=== PATIENT | female | born 1955 | race Two or more races ===

== ENCOUNTER → 2021-08-15 | Outpatient (CLI) | payer OTHER ==
[2021-08-15 11:47] LABS: Urine Bacteria FEW /hpf (None Seen); Urine Blood Negative /uL (Negative); Urine Specific Gravity 1.011 (1.001-1.035); Urine WBC 1 /hpf (0 - 5)
[2021-08-15 13:45] LABS: Basophils # (auto) 0.1 10 ^3/uL (0-0.2); Eosinophils # (auto) 0.3 10 ^3/uL (0-0.8); Monocytes # (auto) 0.4 10 ^3/uL (0-1.3); Neutrophils # (auto) 4.7 10 ^3/uL (1.6-8.6); Nucleated Red Blood Cells % 0.1 %
[2021-08-15 13:47] LABS: Basophils % (auto) 1.2 % (0.0-2.0); Eosinophils % (auto) 3.8 % (0.0-7.0); Hematocrit 32.5 % (36.0-46.0); Hemoglobin 10.6 g/dL (12.2-16.2); Lymphocytes # (auto) 1.3 10 ^3/uL (0.4-5.4); Lymphocytes % (auto) 18.9 % (10.0-50.0); Mean Corpuscular Hemoglobin 20.5 pg (28.0-32.0); Mean Corpuscular Hgb Conc. 32.5 g/dL (32.0-36.0); Mean Corpuscular Volume 62.9 fL (80.0-100.0); Monocytes % (auto) 6.2 % (0.0-12.0); Neutrophils % (auto) 69.9 % (37.0-80.0); Red Blood Cells 5.17 10^6/uL (4.0-5.20); Red Cell Distribution Width 16.9 % (11.8-14.3); White Blood Cell 6.7 10^3/uL (4.4-10.8)
[2021-08-15 14:29] LABS: Potassium 3.9 mmol/L (3.5-5.1)
[2021-08-15 14:54] LABS: Albumin 3.6 g/dL (3.4-5.0); BUN/Creatinine Ratio 27.3; Bilirubin, Total 0.6 mg/dL (0.2-1.0); Calcium 8.9 mg/dL (8.5-10.1); Total Protein 6.9 g/dL (6.4-8.2); Uric Acid 4.2 mg/dL (2.6-6.0)
== END | disposition home or self-care (01) ==
LOC: LAB 09:04
PROVIDERS: ATTEND Internal Medicine
DX: Z00.00 Encounter for general adult medical examination without abnormal findings (principal)
CPT/HCPCS: 36415; 80053; 80061; 81001; 83036; 84443; 84550; 85025; 85652; 86431

== ENCOUNTER → 2021-10-25 | Outpatient (CLI) | payer OTHER ==
[~2021-10-25] MED LIST: BUPIVACAINE HCL 0.25% P/F 10 ML VIAL ONE; LIDOCAINE 2%HCL (LOCAL ANESTH.) INJ 10ml MDV ONE; TRIAMCINOLONE 40MG/ML 1ML VIAL ONE
== END | disposition home or self-care (01) ==
LOC: XYW 13:47
PROVIDERS: ATTEND Orthopaedic Surgery Adult Reconstructive Orthopaedic Surgery
DX: M19.011 Primary osteoarthritis, right shoulder (principal); M75.101 Unspecified rotator cuff tear or rupture of right shoulder, not specified as traumatic
CPT/HCPCS: 73020; J2001; J3301; J3490

== ENCOUNTER 2022-02-06 08:38 | Inpatient (IN) | payer OTHER ==
[2022-02-02 12:16] LABS: Basophils # (auto) 0.1 10 ^3/uL (0-0.2); Basophils % (auto) 0.9 % (0.0-2.0); Eosinophils # (auto) 0.3 10 ^3/uL (0-0.8); Eosinophils % (auto) 4.8 % (0.0-7.0); Hematocrit 34.3 % (36.0-46.0); Hemoglobin 10.4 g/dL (12.2-16.2); Lymphocytes # (auto) 1.4 10 ^3/uL (0.4-5.4); Lymphocytes % (auto) 20.9 % (10.0-50.0); Mean Corpuscular Hemoglobin 19.3 pg (28.0-32.0); Mean Corpuscular Hgb Conc. 30.4 g/dL (32.0-36.0); Mean Corpuscular Volume 63.6 fL (80.0-100.0); Monocytes # (auto) 0.5 10 ^3/uL (0-1.3); Monocytes % (auto) 6.7 % (0.0-12.0); Neutrophils # (auto) 4.5 10 ^3/uL (1.6-8.6); Neutrophils % (auto) 66.7 % (37.0-80.0); Red Cell Distribution Width 16.3 % (11.8-14.3); White Blood Cell 6.8 10^3/uL (4.4-10.8)
[2022-02-02 12:22] LABS: Urine Bacteria FEW /hpf (None Seen); Urine Blood Negative /uL (Negative); Urine Specific Gravity 1.008 (1.001-1.035); Urine WBC 9 /hpf (0 - 5)
[2022-02-02 12:23] LABS: INR 0.98 (0.9-1.15)
[2022-02-02 12:49] LABS: Albumin 3.7 g/dL (3.4-5.0); Calcium 8.8 mg/dL (8.5-10.1)
[2022-02-02 12:54] LABS: BUN/Creatinine Ratio 27.4; Bilirubin, Total 0.6 mg/dL (0.2-1.0); Total Protein 7.1 g/dL (6.4-8.2)
[~2022-02-06] VITALS: Ht 162.6 cm; Wt 66.0 kg
[~2022-02-06 08:38] MED LIST changes: +ALBUAER3 IN; -BUPIVACAINE HCL 0.25% P/F 10 ML VIAL ONE; +ESTR0.035 TD; +FLUT44AE IN; +LEV100T PO; -LIDOCAINE 2%HCL (LOCAL ANESTH.) INJ 10ml MDV ONE; -TRIAMCINOLONE 40MG/ML 1ML VIAL ONE
[2022-02-06] MEDS ORDERED: ceFAZolin 1GM/50ML 100 ML IV ONE (08:53)
[2022-02-06] MEDS ORDERED: ACETAMINOPHEN IV 100 ML IV ONE (08:54)
[2022-02-06] MEDS ORDERED: CELECOXIB 100 MG CAP PO ONE (09:15)
[2022-02-06] MEDS ORDERED: ACETAMINOPHEN IV 1000 MG/100ML (10MG/ML) IV ONE (09:15)
[2022-02-06] MEDS ORDERED: PREGABALIN CAPSULE 75 MG CAP PO ONE (09:15)
[2022-02-06] MEDS ORDERED: CELECOXIB 100 MG CAP ONE (09:25)
[2022-02-06] MEDS ORDERED: PREGABALIN CAPSULE 75 MG CAP ONE (09:26)
[2022-02-06] MEDS ORDERED: TRANEXAMIC ACID 20 ML ONE (12:10)
[2022-02-06] MEDS ORDERED: TETRACAINE 1% INJ 2 ML VIAL IJ ONE (12:11)
[2022-02-06] MEDS ORDERED: BUPIVACAINE W/ EPINEPH 0.5% INJ 50ML MDV IJ ONE (12:11)
[2022-02-06] MEDS ORDERED: VANCOMYCIN HCL 1000 MG VL ONE (12:12)
[2022-02-06] MEDS ORDERED: KETOROLAC TROMETH 30 MG/ML 1ML VIAL ONE (12:13)
[2022-02-06] MEDS ORDERED: MORPHINE SULF PF 5 MG/10 ML VIAL ONE (12:13)
[2022-02-06] MEDS ORDERED: fentaNYL CITRATE 100 MCG/2 ML VL ONE (12:34)
[2022-02-06] MEDS ORDERED: MIDAZOLAM HCL 2MG/2ML 2ml VIAL (1mg/ml) ONE (12:34)
[2022-02-06] MEDS ORDERED: PROPOFOL 10 MG/ML 20 ML IV ONE (12:39)
[2022-02-06] MEDS ORDERED: DexAMETHasone SOD PHOS 10MG/1ML VIAL INJ ONE (12:39)
[2022-02-06] MEDS ORDERED: MIDAZOLAM HCL 2MG/2ML 2ml VIAL (1mg/ml) IV PRN (13:15)
[2022-02-06] MEDS ORDERED: ONDANSETRON HCL 4 MG/2 ML VIAL IV PRN ×3 (13:15→14:00)
[2022-02-06] MEDS ORDERED: NALOXONE HCL 0.4 MG/ML VIAL IV PRN (13:15)
[2022-02-06] MEDS ORDERED: HYDROmorphone HCL 2 MG/ML VL/or syr IV PRN ×2 (13:15→14:00)
[2022-02-06] MEDS ORDERED: ePHEDrine SULFATE 50 MG/ML AMP IV PRN (13:15)
[2022-02-06] MEDS ORDERED: diphenhdrAMINE HCL 50 MG/1 ML VL IV PRN (13:15)
[2022-02-06] MEDS ORDERED: DexAMETHasone SOD PHOS 10MG/1ML VIAL INJ IV PRN (13:15)
[2022-02-06] MEDS ORDERED: LABETALOL HCL 5 MG/ML 4ML SYRINGE IV PRN (13:15)
[2022-02-06] MEDS ORDERED: MORPHINE SULFATE INJ 2 MG/ml SYRG IV PRN (14:00)
[2022-02-06] MEDS ORDERED: KETOROLAC TROMETH 30 MG/ML 1ML VIAL IV PRN (14:00)
[2022-02-06] MEDS ORDERED: ALBUTEROL SULF HFA 90MCG INH 200DOSE IN SCH (14:00)
[2022-02-06] MEDS ORDERED: NITROGLYCERIN 0.4 MG SL TAB SL PRN (14:00)
[2022-02-06] MEDS ORDERED: BISACODYL 5 MG EC TAB PO PRN (14:00)
[2022-02-06] MEDS ORDERED: ALBUTEROL SULF 2.5 MG/0.5ML(0.5%) NEB SOLN NEB PRN (16:00)
[2022-02-06 19:30] VITALS: BP 109/70
[2022-02-06 20:00] VITALS: BP 111/60
[2022-02-06] MEDS: ceFAZolin 1GM/50ML 50 ML IV SCH ×2 (20:00→20:20)
[2022-02-06] MEDS: LACTATED RINGER'S 1,000 ML IV SCH (20:20)
[2022-02-06] MEDS: SODIUM CHLOR 0.9% PF (SALINE LOCK) 10ML VIAL/SYR IV SCH ×2 (20:21→20:52)
[2022-02-06 20:46] VITALS: BP 100/58
[2022-02-06 21:00] VITALS: BP 108/61
[2022-02-06 22:00] VITALS: BP 102/54
[2022-02-06] MEDS: DOCUSATE SOD 100 MG CAP PO SCH (22:00)
[2022-02-06] MEDS: oxyCODONE ER 10 MG TAB PO SCH (22:00)
[2022-02-06 23:00] VITALS: BP 109/59
[2022-02-07] VITALS (24 sets, daily range): BP systolic 88–121; BP diastolic 43–96
[2022-02-07] MEDS: LACTATED RINGER'S 1,000 ML IV SCH ×3 (01:43→19:34)
[2022-02-07] MEDS: ceFAZolin 1GM/50ML 50 ML IV SCH (01:43)
[2022-02-07] MEDS: SODIUM CHLOR 0.9% PF (SALINE LOCK) 10ML VIAL/SYR IV SCH ×3 (05:07→22:05)
[2022-02-07 05:21] LABS: Hematocrit 27.2 % (36.0-46.0); Hemoglobin 8.6 g/dL (12.2-16.2)
[2022-02-07 05:39] LABS: Albumin 2.7 g/dL (3.4-5.0); BUN/Creatinine Ratio 27.3; Calcium 8.1 mg/dL (8.5-10.1)
[2022-02-07 05:41] LABS: Bilirubin, Total 0.4 mg/dL (0.2-1.0); Total Protein 5.3 g/dL (6.4-8.2)
[2022-02-07] MEDS: DOCUSATE SOD 100 MG CAP PO SCH ×2 (10:00→22:04)
[2022-02-07] MEDS: PANTOPRAZOLE 40 MG TAB PO SCH (10:21)
[2022-02-07] MEDS: oxyCODONE ER 10 MG TAB PO SCH (10:21)
[2022-02-07] MEDS: LEVOTHYROXINE SODIUM 100 MCG TAB PO SCH (10:21)
[2022-02-07] MEDS: ENOXAPARIN SOD 40 MG/0.4 ML SYRINGE SC SCH (10:22)
[2022-02-07] MEDS ORDERED: LACTATED RINGER'S 2,000 ML IV ONE (13:15)
[2022-02-07] MEDS ORDERED: LACTATED RINGER'S 1,000 ML IV ONE (13:30)
[2022-02-07] MEDS: HYDROmorphone HCL 2 MG/ML VL/or syr IV PRN ×3 (14:47→22:06)
[2022-02-07] MEDS: OXYCODONE W/ ACETAMINOPHEN 5/325MG TABLET PO PRN ×2 (19:35→23:44)
[2022-02-08] MEDS: SODIUM CHLOR 0.9% PF (SALINE LOCK) 10ML VIAL/SYR IV SCH ×2 (04:23→13:58)
[2022-02-08] MEDS: HYDROmorphone HCL 2 MG/ML VL/or syr IV PRN ×2 (04:24→10:12)
[2022-02-08 05:00] VITALS: BP 117/65
[2022-02-08] MEDS: LACTATED RINGER'S 1,000 ML IV SCH (05:41)
[2022-02-08] MEDS: OXYCODONE W/ ACETAMINOPHEN 5/325MG TABLET PO PRN ×2 (05:42→13:57)
[2022-02-08 06:43] LABS: Basophils # (auto) 0 10 ^3/uL (0-0.2); Basophils % (auto) 0.9 % (0.0-2.0); Eosinophils # (auto) 0 10 ^3/uL (0-0.8); Hematocrit 25.8 % (36.0-46.0); Hemoglobin 8.2 g/dL (12.2-16.2); Lymphocytes # (auto) 0.3 10 ^3/uL (0.4-5.4); Monocytes # (auto) 0.5 10 ^3/uL (0-1.3); Neutrophils # (auto) 4.5 10 ^3/uL (1.6-8.6)
[2022-02-08 06:50] LABS: Eosinophils % (auto) 0.2 % (0.0-7.0); Lymphocytes % (auto) 6.5 % (10.0-50.0); Mean Corpuscular Hgb Conc. 31.8 g/dL (32.0-36.0); Monocytes % (auto) 8.9 % (0.0-12.0); Neutrophils % (auto) 83.5 % (37.0-80.0); Nucleated Red Blood Cells % 0.1 %; Red Blood Cells 4.09 10^6/uL (4.0-5.20); Red Cell Distribution Width 16.4 % (11.8-14.3); White Blood Cell 5.4 10^3/uL (4.4-10.8)
[2022-02-08 06:52] LABS: BUN/Creatinine Ratio 15.4; Calcium 8.1 mg/dL (8.5-10.1); Potassium 3.6 mmol/L (3.5-5.1)
[2022-02-08 09:00] VITALS: BP 128/59
[2022-02-08] MEDS: LEVOTHYROXINE SODIUM 100 MCG TAB PO SCH (10:11)
[2022-02-08] MEDS: PANTOPRAZOLE 40 MG TAB PO SCH (10:11)
[2022-02-08] MEDS: DOCUSATE SOD 100 MG CAP PO SCH (10:11)
[2022-02-08] MEDS: ENOXAPARIN SOD 40 MG/0.4 ML SYRINGE SC SCH (10:11)
[2022-02-08 13:00] VITALS: BP 135/67
[2022-02-08 15:19] VITALS: BP 135/67
[2022-02-08 16:41] VITALS: BP 123/73
== END 2022-02-08 17:07 | disposition home health service (06) | DRG 470 ==
LOC: SUR 08:38 → TELE 14:00 → TELE-WESTW 19:05
PROVIDERS: ADMIT Orthopaedic Surgery Adult Reconstructive Orthopaedic Surgery; ATTEND Internal Medicine
PROC: 0SRD0J9 Replacement of Left Knee Joint with Synthetic Substitute, Cemented, Open Approach (ICD-10-PCS; principal; 2022-02-06 12:38)
DX: M17.12 Unilateral primary osteoarthritis, left knee (principal); J45.909 Unspecified asthma, uncomplicated; I95.9 Hypotension, unspecified; E03.9 Hypothyroidism, unspecified; Z20.822 Contact with and (suspected) exposure to COVID-19
CPT/HCPCS: 36415; 73562; 80048; 80053; 81001; 85014; 85018; 85025; 85610; 85730; 86850; 86900; 86901; 97110; 97116; 97163; 97530; C1713; G0378; J0131; J0690; J1100; J1885; J2250; J2405; J2704

== ENCOUNTER → 2022-08-01 | Outpatient (CLI) | payer OTHER ==
[2022-08-01 10:48] LABS: Albumin 3.7 g/dL (3.4-5.0); Potassium 3.9 mmol/L (3.5-5.1)
[2022-08-01 10:50] LABS: Total Protein 7.1 g/dL (6.4-8.2)
[2022-08-01 15:11] LABS: BUN/Creatinine Ratio 15.5; Bilirubin, Total 0.6 mg/dL (0.2-1.0); Calcium 8.5 mg/dL (8.5-10.1)
== END | disposition home or self-care (01) ==
LOC: LAB 09:50
PROVIDERS: ATTEND Internal Medicine
DX: Z12.11 Encounter for screening for malignant neoplasm of colon (principal); R73.03 Prediabetes; D64.9 Anemia, unspecified
CPT/HCPCS: 36415; 80053; 80061; 82043; 83036

== ENCOUNTER → 2023-01-25 | Outpatient (CLI) | payer OTHER | END | disposition home or self-care (01) | LOC: XYW 14:04 | PROVIDERS: ATTEND Internal Medicine | DX: R42 Dizziness and giddiness (principal) | CPT/HCPCS: 93886 ==

== ENCOUNTER → 2023-05-03 | Outpatient (CLI) | payer OTHER ==
[2023-05-03 09:05] LABS: Basophils # (auto) 0 10 ^3/uL (0-0.2); Basophils % (auto) 0.7 % (0.0-2.0); Lymphocytes # (auto) 1.1 10 ^3/uL (0.4-5.4); Neutrophils # (auto) 3.3 10 ^3/uL (1.6-8.6); Red Cell Distribution Width 17.6 % (11.8-14.3)
[2023-05-03 09:06] LABS: Eosinophils # (auto) 0.1 10 ^3/uL (0-0.8); Eosinophils % (auto) 2.7 % (0.0-7.0); Hematocrit 31.6 % (36.0-46.0); Lymphocytes % (auto) 22.1 % (10.0-50.0); Mean Corpuscular Hemoglobin 19.5 pg (28.0-32.0); Mean Corpuscular Hgb Conc. 31.6 g/dL (32.0-36.0); Mean Corpuscular Volume 61.5 fL (80.0-100.0); Monocytes # (auto) 0.5 10 ^3/uL (0-1.3); Monocytes % (auto) 9.4 % (0.0-12.0); Neutrophils % (auto) 65.1 % (37.0-80.0); Nucleated Red Blood Cells % 0.1 %; Red Blood Cells 5.13 10^6/uL (4.0-5.20); White Blood Cell 5.1 10^3/uL (4.4-10.8)
[2023-05-03 10:03] LABS: Creatinine, Urine 70.46 mg/dL (30.0-125.0)
[2023-05-03 10:05] LABS: Micro Albumin < 3.0 mg/L (<30.0)
[2023-05-03 10:07] LABS: Alanine Aminotransferase 14 U/L (7-40); Albumin 3.9 g/dL (3.2-4.8); Alkaline Phosphatase 56 U/L (46-116); Anion Gap 5 (5-15); Aspartate Aminotransferase 18 U/L (13-40); Blood Urea Nitrogen 6 mg/dL (9-23); Calcium 8.8 mg/dL (8.5-10.1); Carbon Dioxide 27 mmol/L (20-30); Chloride 99 mmol/L (98-107); Cholesterol 175 mg/dL (< 200); Glucose 93 mg/dL (74-106); HDL Cholesterol 68 mg/dL (40-59); LDL Cholesterol 89 mg/dL (< 100); Potassium 3.8 mmol/L (3.5-5.1); Sodium 131 mmol/L (136-145); Triglycerides 73 mg/dL (< 150)
[2023-05-03 10:08] LABS: Bilirubin, Total 0.4 mg/dL (0.2-1.0); Total Protein 6.8 g/dL (5.7-8.2)
== END | disposition home or self-care (01) ==
LOC: LAB 08:47
PROVIDERS: ATTEND Internal Medicine
DX: E78.5 Hyperlipidemia, unspecified (principal); R73.03 Prediabetes
CPT/HCPCS: 36415; 80053; 80061; 82043; 82570; 83036; 84443; 85025

== ENCOUNTER → 2023-07-02 | Outpatient (CLI) | payer OTHER | END | disposition home or self-care (01) | LOC: XYW 07:47 | PROVIDERS: ATTEND Orthopaedic Surgery Adult Reconstructive Orthopaedic Surgery | DX: M17.12 Unilateral primary osteoarthritis, left knee (principal); Z96.652 Presence of left artificial knee joint | CPT/HCPCS: 78315; A9503 ==

== ENCOUNTER → 2023-10-24 | Outpatient (CLI) | payer OTHER ==
[2023-10-24 09:32] LABS: Calcium 9.2 mg/dL (8.5-10.1); Chloride 100 mmol/L (98-107); Potassium 4.2 mmol/L (3.5-5.1); Sodium 134 mmol/L (136-145)
[2023-10-24 09:33] LABS: Anion Gap 6 (5-15); Carbon Dioxide 28 mmol/L (20-30)
[2023-10-24 09:38] LABS: Blood Urea Nitrogen 9 mg/dL (9-23); Glucose 89 mg/dL (74-106)
[2023-10-24 09:49] LABS: CRP High Sensitivity 1.02 mg/dL (<1.0)
[2023-10-24 10:45] LABS: Erythrocyte Sedimentation Rate 19 mm/hr (0-20)
== END | disposition home or self-care (01) ==
LOC: LAB 08:47
PROVIDERS: ATTEND Orthopaedic Surgery Adult Reconstructive Orthopaedic Surgery
DX: Z12.11 Encounter for screening for malignant neoplasm of colon (principal); R73.03 Prediabetes; M25.562 Pain in left knee
CPT/HCPCS: 36415; 80048; 85652; 86141

== ENCOUNTER → 2024-02-06 | Outpatient (CLI) | payer OTHER ==
[~2024-02-06] MED LIST changes: -LEV100T PO; +LEVO-849 PO
[2024-02-06 09:07] LABS: Basophils # (auto) 0.1 10 ^3/uL (0-0.2); Eosinophils # (auto) 0.4 10 ^3/uL (0-0.8); Eosinophils % (auto) 4.9 % (0.0-7.0); Hemoglobin 10.3 g/dL (12.2-16.2); Lymphocytes # (auto) 1.5 10 ^3/uL (0.4-5.4); Lymphocytes % (auto) 19.6 % (10.0-50.0); Mean Corpuscular Hemoglobin 20.3 pg (28.0-32.0); Mean Corpuscular Hgb Conc. 32.2 g/dL (32.0-36.0); Mean Corpuscular Volume 63.2 fL (80.0-100.0); Monocytes # (auto) 0.6 10 ^3/uL (0-1.3); Monocytes % (auto) 7.4 % (0.0-12.0); Neutrophils % (auto) 67.1 % (37.0-80.0); Nucleated Red Blood Cells % 0.1 %; Red Blood Cells 5.07 10^6/uL (4.0-5.20); Red Cell Distribution Width 16.8 % (11.8-14.3); White Blood Cell 7.5 10^3/uL (4.4-10.8)
[2024-02-06 09:38] LABS: Erythrocyte Sedimentation Rate 9 mm/hr (0-20)
== END | disposition home or self-care (01) ==
LOC: LAB 08:43
PROVIDERS: ATTEND Internal Medicine
DX: M17.12 Unilateral primary osteoarthritis, left knee (principal)
CPT/HCPCS: 36415; 85025; 85652; 86141

== ENCOUNTER → 2024-02-20 | Outpatient (CLI) | payer OTHER | END | disposition home or self-care (01) | LOC: XYW 13:01 | PROVIDERS: ATTEND Internal Medicine | DX: I51.89 Other ill-defined heart diseases (principal); I35.1 Nonrheumatic aortic (valve) insufficiency; I51.7 Cardiomegaly | CPT/HCPCS: 93306 ==

== ENCOUNTER → 2024-08-14 | Outpatient (CLI) | payer OTHER ==
[2024-08-14 09:53] LABS: Urine Bacteria FEW /hpf (None Seen); Urine Blood Negative /uL (Negative); Urine Clarity Clear (Clear); Urine Color Light-Yellow (Yellow); Urine Protein, UAD Negative (Negative); Urine Specific Gravity 1.013 (1.001-1.035); Urine Squamous Epithelial Cell FEW /hpf (<5); Urine Urobilinogen Normal (Negative); Urine WBC 1 /HPF (0-5); Urine pH 6.5 (5.0-9.0)
[2024-08-14 10:10] LABS: Alanine Aminotransferase 11 U/L (7-40); Albumin 4.3 g/dL (3.2-4.8); Alkaline Phosphatase 57 U/L (46-116); Anion Gap 7 (5-15); Aspartate Aminotransferase 14 U/L (13-40); Bilirubin, Total 0.6 mg/dL (0.2-1.0); Blood Urea Nitrogen 13 mg/dL (9-23); Calcium 9.4 mg/dL (8.7-10.4); Carbon Dioxide 25 mmol/L (20-31); Chloride 99 mmol/L (98-107); Glucose 90 mg/dL (74-106); LDL Cholesterol 97 mg/dL (< 100); Total Protein 6.8 g/dL (5.7-8.2); Triglycerides 47 mg/dL (< 150)
[2024-08-14 10:20] LABS: Cholesterol 202 mg/dL (< 200); HDL Cholesterol 90 mg/dL (40-59); Sodium 131 mmol/L (136-145)
[2024-08-14 10:27] LABS: Creatinine, Urine 60.05 mg/dL (30.0-125.0)
[2024-08-14 10:40] LABS: Micro Albumin < 3.0 mg/L (<30.0)
== END | disposition home or self-care (01) ==
LOC: LAB 08:39
PROVIDERS: ATTEND Internal Medicine
DX: J43.9 Emphysema, unspecified (principal); E03.9 Hypothyroidism, unspecified; R73.03 Prediabetes
CPT/HCPCS: 36415; 80053; 80061; 81001; 82043; 82270; 82306; 82570; 82607; 83036; 84443

== ENCOUNTER 2024-12-30 09:08 | Outpatient (CLI) | payer OTHER ==
[2024-12-30 10:02] LABS: Anion Gap 7 (5-15); Carbon Dioxide 26 mmol/L (20-31); Chloride 101 mmol/L (98-107); Potassium 4.0 mmol/L (3.5-5.1)
[2024-12-30 10:03] LABS: Sodium 134 mmol/L (136-145)
[2024-12-30 10:04] LABS: Calcium 9.6 mg/dL (8.7-10.4)
[2024-12-30 10:08] LABS: BUN/Creatinine Ratio 18.8 (10.0-20.0); Blood Urea Nitrogen 12 mg/dL (9-23); Glucose 88 mg/dL (74-106)
== END 2024-12-30 19:31 | disposition home or self-care (01) ==
LOC: LAB 09:08
PROVIDERS: ATTEND Internal Medicine
DX: R73.03 Prediabetes (principal); Z00.00 Encounter for general adult medical examination without abnormal findings
CPT/HCPCS: 36415; 80048; 82306; 83036

== ENCOUNTER 2025-06-08 08:45 | Outpatient (CLI) | payer OTHER ==
[2025-06-08 09:23] LABS: Hematocrit 33.0 % (36.0-46.0); Hemoglobin 10.5 g/dL (12.2-16.2); Mean Corpuscular Hemoglobin 20.2 pg (28.0-32.0); Mean Corpuscular Volume 63.3 fL (80.0-100.0); Nucleated Red Blood Cells % 0.0 %
== END 2025-06-08 17:00 | disposition home or self-care (01) ==
LOC: LAB 08:45
PROVIDERS: ATTEND Internal Medicine
DX: E03.9 Hypothyroidism, unspecified (principal)
CPT/HCPCS: 36415; 84443; 85025

== ENCOUNTER → 2025-06-12 | Outpatient (CLI) | payer OTHER | END | disposition home or self-care (01) | LOC: XYW 09:47 | PROVIDERS: ATTEND Internal Medicine | DX: I70.0 Atherosclerosis of aorta (principal); I51.89 Other ill-defined heart diseases | CPT/HCPCS: 93306 ==